=== PATIENT | female | born 1985 | race Caucasian/White ===

== ENCOUNTER → 2023-01-22 11:52 | Outpatient (CLI) | payer BC, SELFPAY ==
--- NOTE | ~2023-01-22 | MM_ITS ---
EXAMINATION: MM screening melly BI w rubio HISTORY: Screening TECHNIQUE: Craniocaudal and mediolateral oblique 3-D tomosynthesis images were obtained and synthetic 2-D images were generated. CAD analysis was submitted and interpreted. COMPARISON: No prior mammogram is available for comparison at this institution. BREAST PARENCHYMAL COMPOSITION: Breast composed of scattered areas of fibroglandular density FINDINGS: There are bilateral asymmetries in the periareolar location of both breast on MLO views, no t confirmed on CC views. There are no suspicious calcifications or architectural distortion. IMPRESSION: 1. Bilateral breast asymmetries. 2. Additional mammographic views and possible breast ultrasound are recommended. BI-RADS Category 0: Incomplete: Needs additional imaging evaluation. Reviewed, dictated and finalized at location A. IMPRESSION: 1. Bilateral breast asymmetries. 2. Additional mammographic views and possible breast ultrasound are recommended . BI-RADS Category 0: Incomplete: Needs additional imaging evaluation.
== END ==
PROVIDERS: PCP Emergency Medicine; Visit Provider Emergency Medicine
DX: Z12.31 Encounter for screening mammogram for malignant neoplasm of breast (principal); R92.8 Other abnormal and inconclusive findings on diagnostic imaging of breast
CPT/HCPCS: 77063; 77067

== ENCOUNTER → 2023-02-20 08:31 | Outpatient (CLI) | payer BC, SELFPAY ==
--- NOTE | ~2023-02-20 | MMUS_ITS ---
EXAMINATION: MM diagnostic melly BI w rubio, US breast RT complete HISTORY: Bilateral mammographic asymmetries reported on 01/14/2023 screening mammogram TECHNIQUE: Additional 3-D tomosynthesis images of both breasts were performed and synthetic 2-D image s were generated. CAD analysis was submitted and interpreted. High resolution complete right breast u ltrasound examination including all 4 quadrants and subareolar area was performed. COMPARISON: 01/22/2023 bilateral screening mammogram FINDINGS: MAMMOGRAPHIC FINDINGS: Right breast: There is Ill-defined nodular prominence of the fibroglandular stroma above and below the nipple on ML O view. This may be fibroglandular asymmetry, but mass lesion is not excluded. Right breast ultrasoun d examination was performed. Left breast: No suspicious mass, architectural distortion, microcalcifications, skin thickening or retraction is d etected. ULTRASOUND: Real-time imaging of the complete right breast reveals no suspicious mass or shadowing, cyst or other significant sonographic finding. IMPRESSION: 1. No mammographic evidence of malignancy 2. Routine annual mammographic screening is recommended BI-RADS Category 1: Negative Reviewed, dictated and finalized at location A. IMPRESSION: 1. No mammographic evidence of malignancy 2. Routine annual mammographic screening is recommended BI-RADS Category 1: Negative
== END ==
PROVIDERS: PCP Physician Assistant; Visit Provider Physician Assistant
DX: R92.8 Other abnormal and inconclusive findings on diagnostic imaging of breast (principal)
CPT/HCPCS: 76641; 77062; 77066; G0279

== ENCOUNTER 2023-12-28 14:43 | Emergency (ER) | payer BC, SELFPAY ==
--- NOTE | ~2023-12-28 | CT_ITS ---
EXAMINATION: CT abdomen pelvis w con DATE: 12/28/2023 16:13 INDICATION: LLQ pain TECHNIQUE: Computed tomography (CT) of the abdomen and pelvis was performed with 100 mL Omnipaque-350 intravenous contrast. Automated exposure control and iterative reconstruction technique were employe d. The dose-length product was 504.83 mGy-cm. COMPARISON: None. FINDINGS: Lower thorax: Unremarkable Liver: Normal. Biliary/Gallbladder: Gallbladder is normal. No bile duct dilation. Pancreas: No mass or duct dilation. Spleen: Normal. Adrenals:No mass. Kidneys: 3.3 cm indeterminate density right midpole mass. Simple right upper pole cyst. 3 mm nonobstr ucting right upper pole calcification. Normal left kidney. No hydronephrosis. GI tract: Mild distal esophageal and gastric wall edema No small or large bowel dilation. Segmental w all thickening and surrounding inflammatory change/fluid in the proximal sigmoid in the left lower qu adrant, with a small, hyperemic inflamed appearing diverticulum. Normal appendix. Mesentery/Peritoneum: No ascites, mass, or free air. Retroperitoneum: No mass. Pelvis: Pelvic organs are within normal limits. Trace free pelvic fluid, within physiologic range. Soft Tissues: Soft tissues and body wall unremarkable. Bones: No acute osseous finding. IMPRESSION: Acute uncomplicated proximal sigmoid diverticulitis. Mild esophagitis/gastritis. 3.3 cm indeterminate density right midpole renal mass, recommend nonemergent but timely MRI or CT wit hout and with contrast for further evaluation. Reviewed, dictated and finalized at location K. [employer] SPECIALIST IMPRESSION: Acute uncomplicated proximal sigmoid diverticulitis. Mild esophagitis/gastritis. 3.3 cm indeterminate density right midpole renal mass, recommend nonemergent bu t timely MRI or CT without and with contrast for further evaluation.
[2023-12-28 14:46] VITALS: BP 111/67; PULSE 121; RESP 17; TEMP 37.7; O2SAT 100
[2023-12-28 15:12] LABS: Basophils Percent Auto 0.3 % (0.2-1.2); Eosinophils Percent Auto 0.1 % (0-4.4); Hematocrit 37.6 % (37.0-47.0); Hemoglobin 11.9 g/dL (12.0-15.0); Immature Granulocyte Absolute 0.06 K/mm3 (0.00-0.031); Immature Granulocyte Percent A 0.4 % (0-0.5); Lymphocytes Absolute Auto 1.93 K/mm3 (0.9-3.2); Lymphocytes Percent Auto 13.9 % (18.3-44.2); Mean Corpuscular HGB Conc 31.6 g/dl (32-36); Mean Corpuscular Hemoglobin 28.1 pg (26-34); Mean Corpuscular Volume 88.7 fl (80-100); Mean Platelet Volume 9.7 fl (7.4-10.4); Monocytes Percent Auto 7.3 % (2.6-8.5); Neutrophils Absolute Auto 10.9 K/mm3 (1.3-6.7); Platelet Count Result 255 k/mm3 (150-375); Red Blood Count 4.24 M/mm3 (4.2-5.4); Red Cell Distribution Width 14.1 % (11.5-14.5); White Blood Count 13.9 K/mm3 (4.5-10.0)
[2023-12-28 15:25] LABS: Alanine Aminotransferase 17 U/L (6-35); Albumin Level 4.4 g/dL (3.5-5.1); Alkaline Phosphatase 66 U/L (38-126); Anion Gap 9 mmol/L (8-16); Aspartate Amino Transferase 27 U/L (14-36); Bilirubin,Total 0.7 mg/dL (0.2-1.3); Blood Urea Nitrogen 12 mg/dL (7-17); Calcium 9.2 mg/dL (8.4-10.2); Carbon Dioxide 22 mmol/L (22-30); Chloride 105 mmol/L (98-107); Estimated CRCL calculation 84 ml/min; Estimated Glomerular Filt Rate > 60; Glucose 117 mg/dL (65-110); Lipase 120 U/L (23-300); Potassium 3.8 mmol/L (3.4-5.0); Sodium 136 mmol/L (137-145)
[2023-12-28 15:26] LABS: Appearance Urine Cloudy (Clear); Bacteria Urine 4+ /hpf; Bilirubin Urine Negative (Negative); Blood Urine 2+ (Negative); Color Urine Dark Yellow (Yellow); Glucose Urine UA Negative (Negative); Ketones Urine 3+ mg/dL (Negative); Leukocyte Esterase Ur 2+ LEU/UL (Negative); Need Manual Microscopic Reviewed; Nitrate Urine Negative (Negative); Protein Urine Trace mg/dL (Negative); Specific Grav Ur 1.024 (1.001-1.035); Squamous Epithelial Cell Urine Many /hpf (Few); Urobilinogen Urine 0.2 mg/dL (<2.0); WBC Urine >100 /hpf
[2023-12-28 15:44] LABS: Add Urine Microscopic? YES
--- NOTE | 2023-12-28 15:50 | ECG_ITS ---
Measurements Intervals [place] Rate: 95 P: 60 FL: 174 QRS: 77 QRSD: 91 T: 46 QT: 359 QTc: 452 Interpretive Statements SINUS RHYTHM INCOMPLETE RIGHT BUNDLE BRANCH BLOCK DELAYED PRECORDIAL R/S TRANSITION LOW QRS VOLTAGE IN PRECORDIAL LEADS BORDERLINE T WAVE ABNORMALITY- ANTERIOR LEADS BASELINE WANDER- AVF BORDERLINE ECG NO PREVIOUS ECG AVAILABLE FOR COMPARISON Electronically Signed On 12-28-2023 17:09:07 [employer] CLERK by Marco A Scott D.O.
--- NOTE | 2023-12-28 15:51 | ED.ABDPAIN ---
HPI - Abdominal Pain General Chief Complaint: Abdominal Pain Stated Complaint: abdominal, low-grade fever x2days. Time Seen by Provider: 12/28/23 15:00 History of Present Illness HPI narrative: 38-year-old female presents to emergency department for left lower quadrant pain x2 days. Patient reports associated low-grade fevers, T-max was 101? at home. Denies nausea, vomiting, diarrhea, chest pain or shortness of breath, dysuria or hematuria. LMP approximately 3 weeks ago. Denies vaginal discharge, bleeding or concern for STDs. He denies prior abdominal surgeries. Last bowel movement was today normal. Related Data Allergies Allergy/AdvReac Type Severity Reaction Status Date / Time No Known Allergies Allergy Verified 12/28/23 14:49 Review of Systems Review of Systems: CONSTITUTIONAL: See HPI EYES: Denies visual changes, redness, or discharge. ENT: Denies rhinorrhea, congestion, sore throat, or otalgia. CARDIOVASCULAR: Denies chest pain, palpitations, or edema. RESPIRATORY: Denies cough or dyspnea. GASTROINTESTINAL: See HPI GENITOURINARY: Denies dysuria or hematuria. SKIN: Denies rash or itching. MUSCULOSKELETAL: Denies back pain, joint pain, or myalgia. NEUROLOGIC: Denies headache, numbness, or weakness. PSYCHIATRIC: Denies anxiety or depression. [facility] Family History Family History Grandparent Family history of coronary artery disease Social History Social History Smoking status: Never smoker Second hand tobacco smoke exposure: No Alcohol intake: former Substance use: never Lack of Transportation: No Lack of Food: Never True Current Housing: I Have Housing Concerned About Future Housing: No Difficulty Paying Gas/Electric Bills: No Difficulty Paying for Meds: No Currently Unemployed: No Difficulty w/ Childcare or Family Care: No Exam Narrative: GENERAL: Well-appearing, well-nourished, and in no acute distress. HEAD: Normocephalic, atraumatic. EYES: PERRLA and EOMI. ENT: Nares clear, no rhinorrhea or epistaxis. Mucous membranes moist. NECK: Supple. CHEST: Clear to auscultation. No respiratory distress. HEART: Regular rate and rhythm. No murmur heard. Normal peripheral pulses. ABDOMEN: Normoactive bowel sounds. Abdomen soft with tenderness and guarding the left lower quadrant. No rebound or rigidity. No CVA tenderness. EXTREMITIES: Normal range of motion. No edema. SKIN: Warm, dry, no rash. NEURO: No focal deficits. Alert and oriented x3 Course Vital Signs Vital signs: Vital Signs Temperature 99.8 F H 12/28/23 14:46 Pulse Rate 121 H 12/28/23 14:46 Respiratory Rate 17 12/28/23 14:46 Blood Pressure 111/67 12/28/23 14:46 Pulse Oximetry 100 12/28/23 14:46 Oxygen Delivery Room Air 12/28/23 14:46 Temperature 99.2 F 12/28/23 17:10 Pulse Rate 95 12/28/23 17:10 Respiratory Rate 13 12/28/23 17:10 Blood Pressure 104/70 12/28/23 17:10 Pulse Oximetry 98 12/28/23 17:10 Oxygen Delivery Room Air 12/28/23 14:46 MDM - Abdominal Pain MDM Narrative Medical decision making narrative: 38-year-old female presents to the emergency department for left lower quadrant pain and fevers x2 days. See HPI for further history. Triage vital significant for low-grade fever of 99.8 and tachycardia 121. Exam is significant for tenderness and guarding the left lower quadrant. EKG shows sinus rhythm, incomplete right bundle-branch block, no ST elevations or depressions. CBC concerning with leukocytosis of 13.9, no bandemia. ESR is elevated 59 and CRP is elevated to 8.2. Chemistries are largely unremarkable. UA concerning for infection, however there are many squamous cells present. Urine culture pending. negative. Lactic acid normal at 1. CT abdomen pelvis shows acute uncomplicated proximal sigmoid diverticulitis. Incidental fi
[2023-12-28] MEDS: SODIUM CHLORIDE 0.9% IV 1,000 ML 999 ML IV CONT (16:13)
[2023-12-28] MEDS: ACETAMINOPHEN 500 MG TABLET 1000 MG PO (16:13)
[2023-12-28 16:35] LABS: CRP 8.2 mg/dL (<1.0)
[2023-12-28 16:59] LABS: Erythrocyte Sedimentation Rate 57 mm/hr (0-20)
[2023-12-28 17:10] VITALS: BP 104/70; PULSE 95; RESP 13; TEMP 37.3; O2SAT 98
[2023-12-28] MEDS: KETOROLAC 30 MG/ML VIAL (*BKC) IV PUSH (17:21)
[2023-12-28] MEDS: metroNIDAZOLE 500 MG TABLET PO (17:21)
[2023-12-28] MEDS: CIPROFLOXACIN 500 MG TAB PO (17:21)
[2023-12-28 19:11] VITALS: BP 103/73; PULSE 92; RESP 18; O2SAT 100
== END 2023-12-28 19:12 | disposition home or self-care (01) ==
PROVIDERS: Emergency Medicine; Emergency Provider Physician Assistant; PCP Emergency Medicine
DX: K57.32 Diverticulitis of large intestine without perforation or abscess without bleeding (principal); N28.89 Other specified disorders of kidney and ureter; R82.998 Other abnormal findings in urine; K20.90 Esophagitis, unspecified without bleeding; K29.70 Gastritis, unspecified, without bleeding; I45.10 Unspecified right bundle-branch block; R94.31 Abnormal electrocardiogram [ECG] [EKG]
CPT/HCPCS: 36415; 74177; 80053; 81001; 81025; 83605; 83690; 85025; 85652; 86140; 87086; 87088; 93005; 96361; 96374; 99284; A9270; J1885; J7030; Q9967

== ENCOUNTER 2024-01-28 07:45 | Outpatient (CLI) | payer BC, SELFPAY ==
--- NOTE | ~2024-01-28 | MR_ITS ---
EXAMINATION: MR abdomen wo/w con DATE: 01/28/2024 08:38 INDICATION: Right kidney mass. TECHNIQUE: Magnetic resonance imaging (MRI) of the abdomen was performed without and with 15 mL [employer] intravenous contrast. COMPARISON: CT abdomen and pelvis 12/28/2023 FINDINGS: There is a 9 mm cyst in the liver. The gallbladder, spleen, pancreas, and adrenal glands are normal. There are cysts in the kidneys measuring up to 20 mm on the right. There is a 3.4 cm hypoenhancing ma ss in right kidney. There are no dilated loops of bowel. There are no pathologically enlarged lymph n odes. There is no free intraperitoneal fluid. IMPRESSION: 1. 3.4 cm hypoenhancing mass in right kidney, consistent with renal cell carcinoma. Reviewed, dictated and finalized at location A. IMPRESSION: 1. 3.4 cm hypoenhancing mass in right kidney, consistent with renal cell carcin wesley.
== END 2024-01-28 07:46 ==
LOC: MICIMG 07:46
PROVIDERS: PCP Nurse Practitioner Family; Visit Provider Nurse Practitioner Family
DX: R93.429 Abnormal radiologic findings on diagnostic imaging of unspecified kidney (principal)
CPT/HCPCS: 74183; A9577

== ENCOUNTER 2024-04-07 13:34 | Outpatient (NON) | payer BC, SELFPAY | END 2024-04-07 13:35 | disposition home or self-care (01) | LOC: ANHGOSHLAB 13:35 | PROVIDERS: PCP Nurse Practitioner Family; Visit Provider Nurse Practitioner Family | DX: R39.9 Unspecified symptoms and signs involving the genitourinary system (principal) | CPT/HCPCS: 87077; 87086; 87088; 87147; 87181; 87186 ==

== ENCOUNTER 2024-04-10 15:47 | Outpatient (CLI) | payer BC, SELFPAY ==
--- NOTE | ~2024-04-10 | MM_ITS ---
EXAMINATION: MM screening melly BI w rubio HISTORY: Screening TECHNIQUE: Craniocaudal and mediolateral oblique 3-D tomosynthesis images were obtained and synthetic 2-D images were generated. CAD analysis was submitted and interpreted. COMPARISON: 01/22/2023 BREAST PARENCHYMAL COMPOSITION: Not dense: There are scattered areas of fibroglandular density. FINDINGS: There is no evidence of suspicious mass, calcification, or architectural distortion to sugg est malignancy in either breast. There has been no suspicious interval change. IMPRESSION: 1. No mammographic evidence of malignancy. 2. Recommend routine screening mammography in one year. BI-RADS Category 1: Negative Reviewed, dictated and finalized at location B.
== END 2024-04-10 15:48 ==
LOC: MICIMG 15:47
PROVIDERS: PCP Obstetrics & Gynecology Gynecology; Visit Provider Obstetrics & Gynecology Gynecology
DX: Z12.31 Encounter for screening mammogram for malignant neoplasm of breast (principal)
CPT/HCPCS: 77063; 77067

== ENCOUNTER 2025-04-13 15:40 | Outpatient (CLI) | payer BC, SELFPAY ==
--- NOTE | ~2025-04-13 | MM_ITS ---
EXAMINATION: MM screening [facility] BI w rubio HISTORY: Screening TECHNIQUE: Craniocaudal and mediolateral oblique 3-D tomosynthesis images were obtained and synthetic 2-D images were generated. CAD analysis was submitted and interpreted. COMPARISON: Comparison to multiple prior studies sequentially, with oldest reviewed study dated 01/22. BREAST PARENCHYMAL COMPOSITION: Not dense: There are scattered areas of fibroglandular density. FINDINGS: There is no evidence of suspicious mass, calcification, or architectural distortion to sugg est malignancy in either breast. There has been no suspicious interval change. IMPRESSION: 1. No mammographic evidence of malignancy. 2. Recommend routine screening mammography in one year. BI-RADS Category 1: Negative Reviewed, dictated and finalized at location A.
== END 2025-04-13 15:41 | disposition home or self-care (01) ==
LOC: MICIMG 15:41
PROVIDERS: PCP Nurse Practitioner Family; Visit Provider Obstetrics & Gynecology Gynecology
DX: Z12.31 Encounter for screening mammogram for malignant neoplasm of breast (principal)
CPT/HCPCS: 77063; 77067

== ENCOUNTER 2025-09-02 16:03 | Outpatient (NON) | payer BC, SELFPAY | END 2025-09-02 16:04 | disposition home or self-care (01) | LOC: ANHGOSHLAB 16:04 | PROVIDERS: PCP Nurse Practitioner Family; Visit Provider Student in an Organized Health Care Education/Training Program | DX: R39.9 Unspecified symptoms and signs involving the genitourinary system (principal) | CPT/HCPCS: 87086 ==